=== PATIENT | male | born 1980 | race African-American/Black ===

== ENCOUNTER → 2017-06-08 | Outpatient (CLI) | payer SELFPAY ==
[2017-06-08 08:27] LABS: ABSOLUTE EOSINOPHILS # (AUTO) 0.1 10^3/uL (0.0-0.6); ABSOLUTE LYMPHOCYTES (AUTO) 1.8 10^3/uL (0.5-4.7); ABSOLUTE MONOCYTES (AUTO) 0.6 10^3/uL (0.1-1.4); ABSOLUTE NEUT (AUTO) 2.4 10^3/uL (1.7-8.2); BASOPHILS % (AUTO) 0.9 % (0-2); EOSINOPHILS % (AUTO) 1.2 % (0-6); HEMATOCRIT 41.7 % (37.9-51.0); HEMOGLOBIN 13.9 g/dL (13.5-17.0); LYMPHOCYTES % (AUTO) 36.9 % (13-45); MEAN CORPUSCULAR HEMOGLOBIN 28.6 pg (27.0-33.4); MEAN CORPUSCULAR HGB CONC 33.4 g/dL (32.0-36.0); MEAN CORPUSCULAR VOLUME 86 fl (80-97); MONOCYTES % (AUTO) 11.8 % (3-13); RED BLOOD COUNT 4.87 10^6/uL (4.35-5.55); RED CELL DISTRIBUTION WIDTH 14.9 % (11.5-14.0); SEGMENTED NEUTROPHILS % (AUTO) 49.2 % (42-78); WHITE BLOOD COUNT 4.9 10^3/uL (4.0-10.5)
[2017-06-08 08:55] LABS: ALANINE AMINOTRANSFERASE 48 U/L (21-72); ALKALINE PHOSPHATASE 51 U/L (38-126); ANION GAP 10 (5-19); ASPARTATE AMINO TRANSFERASE 34 U/L (17-59); BILIRUBIN,DIRECT 0.4 mg/dL (0.0-0.4); BILIRUBIN,TOTAL 0.7 mg/dL (0.2-1.3); BLOOD UREA NITROGEN 14 mg/dL (7-20); CARBON DIOXIDE 23 mmol/L (22-30); CHLORIDE 108 mmol/L (98-107); CHOLESTEROL 219.19 mg/dL (0-200); CREATININE RESULT 0.98 mg/dL (0.52-1.25); Direct HDL 47 mg/dL (>40); GLUCOSE 111 mg/dL (75-110); POTASSIUM 4.9 mmol/L (3.6-5.0); SODIUM 141.4 mmol/L (137-145); TRIGLYCERIDES 110 mg/dL (<150)
[2017-06-08 09:06] LABS: DIRECT LDL 158 mg/dL (<100)
[2017-06-08 09:08] LABS: ERYTHROCYTE SEDIMENTATION RATE 22 mm/hr (0-15)
== END ==
LOC: OD 07:39
PROVIDERS: ATTEND Internal Medicine
DX: M79.1 Myalgia (principal); R53.83 Other fatigue; E66.9 Obesity, unspecified
CPT/HCPCS: 36415; 80053; 80061; 83036; 84443; 85025; 85652

== ENCOUNTER 2018-08-07 09:42 | Emergency (ER) | payer SELFPAY ==
[2018-08-07 09:49] VITALS: BP 135/75
[2018-08-07] MEDS ORDERED: CEFTRIAXONE INJ 250 MG VIAL IM ONE (10:06)
[2018-08-07] MEDS ORDERED: LIDOCAINE 1% INJ-PF (10 MG/ML) 30 ML SDV INJ ONE (10:06)
[2018-08-07] MEDS ORDERED: AZITHROMYCIN 250 MG TABLET PO ONE (10:06)
--- NOTE | 2018-08-07 10:15 | ER Document Report ---
HPI - HPI Pain Level: 3 Notes: Patient is an otherwise healthy 38-year-old male who presents to the emergency department with chief complaint of penile discharge times 3 days. Patient is unsure if he has been exposed to any sexually transmitted infections. - URINARY Urinary: REPORTS: Dysuria Past Medical History - General Information source: Patient - Social History Smoking Status: Never Smoker Frequency of alcohol use: None Drug Abuse: Marijuana Family History: Arthritis, CAD, CVA, DM, Hyperlipidemia, Hypertension Patient has suicidal ideation: No Patient has homicidal ideation: No - Medical History Medical History: Negative Renal/ Medical History: Denies: Hx Peritoneal Dialysis Surgical Hx: Negative - Immunizations Immunizations up to date: Yes Vertical Provider Document - CONSTITUTIONAL Notes: PHYSICAL EXAMINATION: GENERAL: Well-appearing, well-nourished and in no acute distress. HEAD: Atraumatic, normocephalic. EYES: Pupils equal round extraocular movements intact, conjunctiva are normal. ENT: Nares patent NECK: Normal range of motion LUNGS: No respiratory distress Musculoskeletal: Normal range of motion NEUROLOGICAL: Normal speech, normal gait. PSYCH: Normal mood, normal affect. SKIN: Warm, Dry, normal turgor, no rashes or lesions noted. - INFECTION CONTROL TRAVEL OUTSIDE OF THE [place] IN LAST 30 DAYS: No Course - Re-evaluation Re-evalutation: Patient treated prophylactically for both chlamydia and gonorrhea. Samples pending. Patient given instructions to call this afternoon to get test results. Refrain from any unprotected sexual activity until he receives his test results and infection if present is cleared. Patient verbalizes understanding of same. - Vital Signs Vital signs: Temp Pulse Resp BP Pulse Ox 98.1 F 65 16 135/75 H 98 08/07/18 09:48 08/07/18 09:48 08/07/18 09:48 08/07/18 09:48 08/07/18 09:48 Discharge - Discharge Clinical Impression: Screen for STD (sexually transmitted disease), Dysuria Condition: Stable Disposition: HOME, SELF-CARE Additional Instructions: You were treated today for possible exposure to chlamydia and gonorrhea. Please call [phone] to get your results in a couple of hours. Please refrain from any sexual intercourse for 7-10 days after treatment, if you are positive for either chlamydia or gonorrhea please notify your partner so that they can go to the health department and received treatment. Referrals: JOSH BARRETT MD [ACTIVE STAFF] - Follow up as needed
[2018-08-07 10:27] LABS: APPEARANCE,URINE CLEAR; BILIRUBIN,URINE NEGATIVE (NEGATIVE); COLOR,URINE YELLOW; GLUCOSE, URINE NEGATIVE (NEGATIVE); KETONES,URINE TRACE mg/dL (NEGATIVE); LEUKOCYTE ESTERASE,URINE TRACE (NEGATIVE); NITRITE,URINE NEGATIVE (NEGATIVE); PROTEIN,URINE NEGATIVE (NEGATIVE); URINE SPECIFIC GRAVITY 1.029
[2018-08-07 12:14] LABS: CHLAM PCR NOT DETECTED (NOT DETECT); GON PCR DETECTED (NOT DETECT)
== END 2018-08-07 10:35 | disposition home or self-care (01) ==
LOC: ER 09:42
DX: R30.0 Dysuria (principal); R36.9 Urethral discharge, unspecified; F12.10 Cannabis abuse, uncomplicated; Z20.2 Contact with and (suspected) exposure to infections with a predominantly sexual mode of transmission
CPT/HCPCS: 99283; 96372; 81001; 87491; 87591; J3490; J0696